=== PATIENT | female | born 1950 | race Caucasian/White ===

== ENCOUNTER 2018-08-26 10:13 | Emergency (ER) | payer OTHER ==
[~2018-08-26] VITALS: Ht 157.5 cm; Wt 57.0 kg
[2018-08-26] MEDS ORDERED: LIDOCAINE 1%-EPI 1:100K, 20ML SQ ONE (11:00)
[2018-08-26] MEDS ORDERED: OXYcodone IR 5MG TABLET ONE (11:04)
[2018-08-26] MEDS ORDERED: LIDOCAINE 1%-EPI 1:100K, 30ML ONE (11:30)
[2018-08-26] MEDS ORDERED: OXYcodone IR 5MG TABLET PO PRN (11:30)
[2018-08-26 11:44] LABS: INTERNATIONAL NORMALIZED RATIO 3.9 (0.93-1.1); PROTHROMBIN TIME 39.5 Seconds (9.6-11.5)
[2018-08-26 12:32] VITALS: BP 128/74
== END 2018-08-26 12:52 ==
LOC: ED 11:37
DX: S05.41XA Penetrating wound of orbit with or without foreign body, right eye, initial encounter (principal); S00.83XA Contusion of other part of head, initial encounter; S50.02XA Contusion of left elbow, initial encounter; S80.02XA Contusion of left knee, initial encounter; G89.11 Acute pain due to trauma; D68.59 Other primary thrombophilia; D68.51 Activated protein C resistance; D68.9 Coagulation defect, unspecified; W01.0XXA Fall on same level from slipping, tripping and stumbling without subsequent striking against object, initial encounter; Y93.89 Activity, other specified; Y92.89 Other specified places as the place of occurrence of the external cause; Y99.8 Other external cause status
CPT/HCPCS: 12011; 36415; 70450; 70486; 85610; 99285

== ENCOUNTER 2018-10-15 14:48 | Inpatient (IN) | payer OTHER ==
[~2018-10-15] VITALS: Ht 157.5 cm; Wt 59.0 kg
[2018-10-15] MEDS ORDERED: HYDROmorphone 2 MG/ML, 1ML ONE (16:29)
[2018-10-15] MEDS ORDERED: HYDROmorphone 1 MG/ML, 1ML IV ONE (16:30)
[2018-10-15] MEDS ORDERED: HYDROmorphone 1 MG/ML, 1ML IM ONE (16:30)
--- NOTE | 2018-10-15 16:33 | NUR ---
DILAUDID GIVEN FOR WORSENING PAIN, RATED 9/10 TO L KNEE AND TAILBONE. PT UPDATED ON POC, INCLUDING MEDS, KNEE IMMOBILIZER AND CRUTCHES. WILL REASSESS FOR PAIN CONTROL IN 15 MINUTES. INDRA WARMER AND WARM BLANKETS PROVIDED. SPOUSE AT BS.
[2018-10-15 17:14] LABS: BASOPHILS # (AUTO) 0.03 x10^3/uL (0-0.1); BASOPHILS % (AUTO) 1 % (0-1); EOSINOPHILS # (AUTO) 0.02 x10^3/uL (0-0.4); EOSINOPHILS % (AUTO) 0 % (1-7); LYMPHOCYTES # (AUTO) 0.91 x10^3/uL (1-3.4); LYMPHOCYTES % (AUTO) 16 % (22-44); MD NO; MEAN CORPUSCULAR HEMOGLOBIN 31.1 pg (27.0-34.8); MEAN CORPUSCULAR HGB CONC 33.4 g/dL (32.4-35.8); MEAN CORPUSCULAR VOLUME 93.2 fL (80-100); MEAN PLATELET VOLUME 7.7 fL (7.4-10.4); MONOCYTES # (AUTO) 0.54 x10^3/uL (0.2-0.8); MONOCYTES % (AUTO) 9 % (2-9); NEUTROPHILS # (AUTO) 4.32 x10^3/uL (1.8-6.8); NEUTROPHILS % (AUTO) 74 % (42-75); PLATELET COUNT 202 x10^3/uL (130-400); RED BLOOD COUNT 4.21 x10^6/uL (3.82-5.3); RED CELL DISTRIBUTION WIDTH 14.3 % (9.6-15.2)
[2018-10-15 17:23] LABS: ANION GAP 6 mmol/L (5-15); CALCIUM 8.6 mg/dL (8.5-10.1); CHLORIDE 106 mmol/L (98-107); CREATININE 0.83 mg/dL (0.55-1.02); INTERNATIONAL NORMALIZED RATIO 1.86 (0.93-1.1); PROTHROMBIN TIME 19.3 Seconds (9.6-11.5)
--- NOTE | 2018-10-15 17:44 | NUR ---
KNEE IMMOBILIZER IN PLACE. PT REQUESTING BEDPAIN FOR TOILETING, STATES PAIN IS TOO BAD TO BE ABLE TO AMBULATE WITH CRUTCHES. CONFERRED WITH ERP, PT TO BE ADMITTED FOR PAIN CONTROL.
--- NOTE | 2018-10-15 18:07 | NUR ---
AISHA RN: REPORT TO TIA LOU ON MED/SURG.
[2018-10-15] MEDS ORDERED: WARF7.5T PO (18:15)
[2018-10-15] MEDS ORDERED: [UNRECOGNIZED DRUG - OTHER] PO (18:15)
[2018-10-15] MEDS ORDERED: CHOL500045 PO (18:15)
[2018-10-15] MEDS ORDERED: LEVO88TA2 PO (18:15)
[2018-10-15] MEDS ORDERED: ESOM40CA PO (18:15)
[2018-10-15] MEDS ORDERED: CITA10TA4 PO (18:15)
[2018-10-15] MEDS ORDERED: WARF5TAB PO (18:15)
[2018-10-15] MEDS ORDERED: ACET-1600 PO (18:15)
--- NOTE | 2018-10-15 18:18 | NUR ---
BREAK RN: ADMITTING BRAXTON FOX AT BEDSIDE FOR EVAL.
[2018-10-15] MEDS: ACETAMINOPHEN 500 MG TABLET PO SCH ×2 (18:30→22:30)
[2018-10-15] MEDS ORDERED: ENALAPRILAT 1.25 MG/ML, 2ML IVPush PRN (19:00)
[2018-10-15] MEDS ORDERED: HYDROmorphone 2 MG/ML, 1ML IVPush PRN (19:00)
[2018-10-15] MEDS ORDERED: TEMAZEPAM 15 MG CAPSULE PO PRN (19:00)
[2018-10-15] MEDS ORDERED: ONDANSETRON ODT 4 MG PO PRN (19:00)
[2018-10-15] MEDS ORDERED: WARFARIN 5 MG TABLET PO-COUM ONE (19:30)
[2018-10-15] MEDS ORDERED: WARFARIN 3 MG TABLET PO-COUM ONE (19:30)
[2018-10-15 20:00] VITALS: BP 105/53
[2018-10-15] MEDS: METHOCARBAMOL 500 MG TABLET PO PRN (20:56)
[2018-10-15] MEDS: HYDROcodone/APAP 5/325 TABLET PO PRN (20:56)
[2018-10-15] MEDS: LIDODERM 5% PATCH TD PRN (20:58)
[2018-10-16 00:10] VITALS: BP 98/61
[2018-10-16] MEDS: ACETAMINOPHEN 500 MG TABLET PO SCH ×2 (00:43→00:47)
[2018-10-16] MEDS: LEVOTHYROXINE 88 MCG TABLET PO SCH (04:43)
[2018-10-16] MEDS: HYDROcodone/APAP 5/325 TABLET PO PRN ×4 (04:43→22:46)
[2018-10-16 05:26] LABS: INTERNATIONAL NORMALIZED RATIO 1.8 (0.93-1.1); PROTHROMBIN TIME 18.7 Seconds (9.6-11.5)
[2018-10-16 06:45] VITALS: BP 96/60
[2018-10-16] MEDS ORDERED: ACETAMINOPHEN 500 MG TABLET PO PRN (08:00)
[2018-10-16] MEDS ORDERED: GADOBUTROL 7.5 MMOL/7.5 ML PFS ONE (10:44)
[2018-10-16] MEDS: ATORVASTATIN 80 MG TABLET PO SCH (11:01)
[2018-10-16] MEDS: CITALOPRAM 10 MG TABLET PO SCH (11:01)
[2018-10-16] MEDS: PANTOPROZOLE 40MG TABLET PO SCH (11:02)
[2018-10-16] MEDS: SENNA/DOCUSATE TABLET PO SCH (11:02)
[2018-10-16] MEDS: CHOLECALCIFEROL 5,000u TAB PO SCH (11:02)
[2018-10-16 14:00] VITALS: BP 93/57
[2018-10-16 15:17] VITALS: BP 97/64
[2018-10-16] MEDS ORDERED: WARFARIN 7.5 MG TABLET PO-COUM ONE ×2 (18:00→20:00)
[2018-10-16 21:02] VITALS: BP 111/71
[2018-10-16] MEDS: METHOCARBAMOL 500 MG TABLET PO PRN (22:46)
[2018-10-17 02:23] VITALS: BP 125/75
[2018-10-17] MEDS: HYDROcodone/APAP 5/325 TABLET PO PRN ×3 (02:48→13:26)
[2018-10-17 05:32] LABS: INTERNATIONAL NORMALIZED RATIO 2.52 (0.93-1.1); PROTHROMBIN TIME 25.8 Seconds (9.6-11.5)
[2018-10-17 06:40] VITALS: BP 99/60
[2018-10-17] MEDS: SENNA/DOCUSATE TABLET PO SCH (09:38)
[2018-10-17] MEDS: PANTOPROZOLE 40MG TABLET PO SCH (09:38)
[2018-10-17] MEDS: CHOLECALCIFEROL 5,000u TAB PO SCH (09:39)
[2018-10-17] MEDS: LEVOTHYROXINE 88 MCG TABLET PO SCH (09:39)
[2018-10-17] MEDS: METHOCARBAMOL 500 MG TABLET PO PRN (09:39)
[2018-10-17] MEDS: CITALOPRAM 10 MG TABLET PO SCH (09:39)
[2018-10-17] MEDS: ATORVASTATIN 80 MG TABLET PO SCH (09:39)
[2018-10-17] MEDS: LIDODERM 5% PATCH TD PRN (14:02)
[2018-10-17 14:50] VITALS: BP 108/66
[2018-10-17] MEDS ORDERED: DIAZEPAM 5 MG TABLET ONE (15:46)
[2018-10-17] MEDS: DIAZEPAM 5 MG TABLET PO PRN ×2 (15:54→19:59)
[2018-10-17] MEDS ORDERED: DIAZEPAM 5 MG/ML, 10ML VIAL IV PRN (16:00)
[2018-10-17] MEDS ORDERED: WARFARIN 5 MG TABLET PO-COUM ONE (18:00)
[2018-10-17] MEDS ORDERED: WARFARIN 7.5 MG TABLET PO-COUM ONE (18:00)
[2018-10-17 21:00] VITALS: BP 108/70
[2018-10-18] MEDS: HYDROcodone/APAP 5/325 TABLET PO PRN ×5 (02:23→23:01)
[2018-10-18 03:54] VITALS: BP 110/71
[2018-10-18 04:50] LABS: INTERNATIONAL NORMALIZED RATIO 2.76 (0.93-1.1); PROTHROMBIN TIME 28.1 Seconds (9.6-11.5)
[2018-10-18 04:51] LABS: MEAN CORPUSCULAR HEMOGLOBIN 31.1 pg (27.0-34.8); MEAN CORPUSCULAR HGB CONC 33.3 g/dL (32.4-35.8); MEAN CORPUSCULAR VOLUME 93.5 fL (80-100); MEAN PLATELET VOLUME 7.8 fL (7.4-10.4); PLATELET COUNT 191 x10^3/uL (130-400); RED BLOOD COUNT 3.95 x10^6/uL (3.82-5.3); RED CELL DISTRIBUTION WIDTH 14.5 % (9.6-15.2)
[2018-10-18 04:55] LABS: ANION GAP 5 mmol/L (5-15); CALCIUM 8.3 mg/dL (8.5-10.1); CHLORIDE 108 mmol/L (98-107)
[2018-10-18 04:56] LABS: CREATININE 0.78 mg/dL (0.55-1.02)
[2018-10-18 05:47] LABS: MD YES
[2018-10-18 05:50] LABS: EOS#(MANUAL) 0.08 x10^3/uL (0.0-0.4); EOS% (MANUAL) 4 % (1-7); LYMPH#(MANUAL) 1.07 x10^3/uL (1-3.4); LYMPHS% (MANUAL) 51 % (22-44); MONOS#(MANUAL) 0.44 x10^3/uL (0.3-2.7); MONOS% (MANUAL) 21 % (2-9); SEGS% (MANUAL) 24 % (42-75)
[2018-10-18 05:51] LABS: <PLATELET ESTIMATE> ADEQUATE; <PLT MORPHOLOGY> NORMAL PLT MORPH; <RBC MORPHOLOGY> NORMAL
[2018-10-18] MEDS: LEVOTHYROXINE 88 MCG TABLET PO SCH (06:20)
[2018-10-18 07:30] VITALS: BP 115/75
[2018-10-18 09:47] LABS: MEAN CORPUSCULAR HEMOGLOBIN 31.2 pg (27.0-34.8); MEAN CORPUSCULAR HGB CONC 33.5 g/dL (32.4-35.8); MEAN CORPUSCULAR VOLUME 93.1 fL (80-100); MEAN PLATELET VOLUME 7.6 fL (7.4-10.4); PLATELET COUNT 198 x10^3/uL (130-400); RED BLOOD COUNT 3.98 x10^6/uL (3.82-5.3); RED CELL DISTRIBUTION WIDTH 14.3 % (9.6-15.2)
[2018-10-18 09:51] LABS: MD YES
[2018-10-18 10:00] LABS: EOS#(MANUAL) 0.06 x10^3/uL (0.0-0.4); EOS% (MANUAL) 3 % (1-7)
[2018-10-18 10:01] LABS: MONOS#(MANUAL) 0.46 x10^3/uL (0.3-2.7); MONOS% (MANUAL) 24 % (2-9); SEG#(MANUAL) 0.59 x10^3/uL (1.8-6.8); SEGS% (MANUAL) 31 % (42-75)
[2018-10-18 10:02] LABS: LYMPH#(MANUAL) 0.78 x10^3/uL (1-3.4); LYMPHS% (MANUAL) 41 % (22-44); REACTIVE LYMPHS # (MANUAL) 0.02 x10^3/uL (0-0); REACTIVE LYMPHS % (MANUAL) 1 % (0-0)
[2018-10-18 10:03] LABS: <PLATELET ESTIMATE> ADEQUATE; <PLT MORPHOLOGY> NORMAL PLT MORPH; <RBC MORPHOLOGY> NORMAL
[2018-10-18] MEDS: CITALOPRAM 10 MG TABLET PO SCH (10:48)
[2018-10-18] MEDS: PANTOPROZOLE 40MG TABLET PO SCH (10:49)
[2018-10-18] MEDS: CHOLECALCIFEROL 5,000u TAB PO SCH (10:49)
[2018-10-18] MEDS: SENNA/DOCUSATE TABLET PO SCH (10:49)
[2018-10-18] MEDS: ATORVASTATIN 80 MG TABLET PO SCH (10:49)
[2018-10-18] MEDS: METHOCARBAMOL 500 MG TABLET PO PRN ×2 (10:50→17:48)
[2018-10-18 12:21] VITALS: BP 116/67
[2018-10-18] MEDS ORDERED: WARFARIN 5 MG TABLET PO-COUM ONE (18:00)
[2018-10-18 19:23] VITALS: BP 104/67
[2018-10-19] MEDS: METHOCARBAMOL 500 MG TABLET PO PRN ×2 (00:51→08:10)
[2018-10-19 02:20] VITALS: BP 97/53
[2018-10-19 05:19] LABS: MEAN CORPUSCULAR HEMOGLOBIN 31.8 pg (27.0-34.8); MEAN CORPUSCULAR HGB CONC 34.2 g/dL (32.4-35.8); MEAN CORPUSCULAR VOLUME 92.9 fL (80-100); MEAN PLATELET VOLUME 7.8 fL (7.4-10.4); PLATELET COUNT 218 x10^3/uL (130-400); RED BLOOD COUNT 3.87 x10^6/uL (3.82-5.3); RED CELL DISTRIBUTION WIDTH 14.3 % (9.6-15.2)
[2018-10-19 05:25] LABS: INTERNATIONAL NORMALIZED RATIO 2.81 (0.93-1.1); PROTHROMBIN TIME 28.6 Seconds (9.6-11.5)
[2018-10-19 05:28] LABS: ANION GAP 5 mmol/L (5-15); CALCIUM 8.7 mg/dL (8.5-10.1); CHLORIDE 106 mmol/L (98-107); CREATININE 0.89 mg/dL (0.55-1.02)
[2018-10-19 05:43] LABS: MD YES
[2018-10-19 05:57] LABS: BASOS#(MANUAL) 0.03 x10^3/uL (0-0.1); BASOS% (MANUAL) 1 % (0-1); EOS#(MANUAL) 0.23 x10^3/uL (0.0-0.4); EOS% (MANUAL) 9 % (1-7); LYMPH#(MANUAL) 1.27 x10^3/uL (1-3.4); LYMPHS% (MANUAL) 49 % (22-44); MONOS#(MANUAL) 0.52 x10^3/uL (0.3-2.7); MONOS% (MANUAL) 20 % (2-9); SEG#(MANUAL) 0.55 x10^3/uL (1.8-6.8); SEGS% (MANUAL) 21 % (42-75)
[2018-10-19 05:58] LABS: <PLATELET ESTIMATE> ADEQUATE; <PLT MORPHOLOGY> NORMAL PLT MORPH; <RBC MORPHOLOGY> NORMAL
[2018-10-19] MEDS: HYDROcodone/APAP 5/325 TABLET PO PRN (06:32)
[2018-10-19] MEDS: LEVOTHYROXINE 88 MCG TABLET PO SCH (06:32)
[2018-10-19 06:58] VITALS: BP 109/71
[2018-10-19] MEDS ORDERED: METH500T7 PO (07:53)
[2018-10-19] MEDS: ATORVASTATIN 80 MG TABLET PO SCH (08:12)
[2018-10-19] MEDS: CHOLECALCIFEROL 5,000u TAB PO SCH (08:12)
[2018-10-19] MEDS: PANTOPROZOLE 40MG TABLET PO SCH (08:12)
[2018-10-19] MEDS: CITALOPRAM 10 MG TABLET PO SCH (08:13)
[2018-10-19] MEDS: SENNA/DOCUSATE TABLET PO SCH (08:13)
[2018-10-19] MEDS ORDERED: WARFARIN 5 MG TABLET PO-COUM ONE (18:00)
== END 2018-10-19 08:20 | disposition home or self-care (01) | DRG 563 ==
LOC: ED 17:27 → OBSVTOIN 17:42 → EDIP 17:42 → 3NE 19:06
PROVIDERS: ADMIT Internal Medicine; ATTEND Internal Medicine
DX: S82.002A Unspecified fracture of left patella, initial encounter for closed fracture (principal); F33.0 Major depressive disorder, recurrent, mild; D68.51 Activated protein C resistance; D68.59 Other primary thrombophilia; S83.412A Sprain of medial collateral ligament of left knee, initial encounter; M22.42 Chondromalacia patellae, left knee; K21.9 Gastro-esophageal reflux disease without esophagitis; E03.9 Hypothyroidism, unspecified; D70.4 Cyclic neutropenia; E78.5 Hyperlipidemia, unspecified; M71.22 Synovial cyst of popliteal space [Baker], left knee; W18.39XA Other fall on same level, initial encounter; Y93.89 Activity, other specified; Y92.89 Other specified places as the place of occurrence of the external cause; Y99.8 Other external cause status; Z79.01 Long term (current) use of anticoagulants; Z83.2 Family history of diseases of the blood and blood-forming organs and certain disorders involving the immune mechanism; Z83.3 Family history of diabetes mellitus; Z87.891 Personal history of nicotine dependence; Z90.710 Acquired absence of both cervix and uterus; Z90.721 Acquired absence of ovaries, unilateral
CPT/HCPCS: 36415; 72110; 72148; 72220; 80048; 85025; 85610; 85730; 99285; A9585; G0378; J1170; J3360; Q0162

== ENCOUNTER → 2018-12-24 | Outpatient (CLI) | payer OTHER ==
[~2018-12-24] MED LIST: ACET-1600 PO; CHOL500045 PO; CITA10TA4 PO; ESOM40CA PO; LEVO88TA2 PO; METH500T7 PO; WARF5TAB PO; WARF7.5T PO; [UNRECOGNIZED DRUG - OTHER] PO
== END | disposition home or self-care (01) ==
LOC: RAD 12:19
PROVIDERS: ATTEND Internal Medicine Cardiovascular Disease
DX: R06.02 Shortness of breath (principal)
CPT/HCPCS: 71045; 78582; A9540; A9558

== ENCOUNTER → 2020-03-02 | Outpatient (CLI) | payer BC | END | disposition home or self-care (01) | LOC: CFH 09:10 | PROVIDERS: ATTEND Family Medicine | DX: Z12.31 Encounter for screening mammogram for malignant neoplasm of breast (principal) | CPT/HCPCS: 76641; 77063; 77067 ==